=== PATIENT | male | born 1985 | race Caucasian/White ===

== ENCOUNTER 2016-09-30 10:01 | Emergency (ER) | payer BC ==
[2016-09-30 10:25] VITALS: BP 140/90; PULSE 112; RESP 18; TEMP 97.7; O2SAT 97
--- NOTE | 2016-09-30 11:08 | UCPHY ---
H & P Time Seen by Provider: 09/30/16 11:03 Patient Type: Established HPI/ROS: This patient presents with an episode of hypoglycemia recorded at 38 this morning. At bedtime last night was 98 and after taking sugar it was 150. He has an insulin pump and is a juvenile diabetic and usually does not have wide variations in his glucose levels. Is review of systems is otherwise negative The patient has had cold symptoms for approximately 5 days consisting of nasal congestion, headache and some minimal cough but without any fever. His symptoms felt improved yesterday and he ate and exercised normally. Prior to this is appetite was diminished and he was less active. He has had no GI symptoms otherwise including nausea vomiting or diarrhea or abdominal pain. Smoking Status: Never smoked Physical Exam: GENERAL: Well-appearing, well-nourished and in no acute distress. HEAD: Atraumatic, normocephalic. EYES: sclera anicteric, conjunctiva are normal. ENT: , nares congested, oropharynx clear without exudates. Moist mucous membranes. NECK: Normal range of motion, supple without lymphadenopathy or JVD. LUNGS: Breath sounds clear to auscultation bilaterally and equal. No wheezes rales or rhonchi. HEART: Regular rate and rhythm ABDOMEN: Soft, nontender, normoactive bowel sounds. No guarding, no rebound. No masses appreciated. EXTREMITIES: Normal range of motion NEUROLOGICAL: Cranial nerves II through XII grossly intact. Normal speech, normal gait. PSYCH: Normal mood, normal affect. SKIN: Warm, dry, normal turgor, no visible rashes or lesions. Constitutional: Initial Vital Signs Temperature (C) 36.5 C 09/30/16 10:21 Heart Rate 112 H 09/30/16 10:21 Respiratory Rate 18 09/30/16 10:21 Blood Pressure 140/90 H 09/30/16 10:21 O2 Sat (%) 97 09/30/16 10:21 O2 Delivery Mode Room Air Allergies/Adverse Reactions: No Known Allergies Allergy (Verified 09/30/16 10:19) Home Medications: Medication Instructions Recorded novoLOG 11/10/13 Medical Decision Making Differential Diagnosis: The cause of this patient's episode of hypoglycemia is unknown to me at this time. There is no evidence of significant infectious disease, no increased exercise and no diminished oral intake. He was advised to make contact with his regular physician and ask his advice as to the next best thing to do. It is not clear to me whether he should alter his flow rate of his insulin pump or see if this reoccurs. Departure - Departure Disposition: Home, Routine, Self-Care Clinical Impression: Hypoglycemia Upper respiratory infection Qualifiers: URI type: unspecified URI Qualified Code(s): J06.9 - Acute upper respiratory infection, unspecified Condition: Good Instructions: Hypoglycemia in a Person with Diabetes (ED), Upper Respiratory Infection (ED) Additional Instructions: You should call your physician and informed him about this episode of hypoglycemia. At this time I am not sure what is the best course of action and I feel that you should talk with him about what to do next. Monitor your blood sugars closely. Referrals: Bobby Galdamez MD [Primary Care Provider] - As per Instructions - PQRS PQRS Measurement: Not applicable
== END 2016-09-30 11:30 | disposition home or self-care (01) ==
LOC: CED 10:01
DX: E16.2 Hypoglycemia, unspecified (principal); J06.9 Acute upper respiratory infection, unspecified; E10.9 Type 1 diabetes mellitus without complications
CPT/HCPCS: 99213-PO; G0463-PO

== ENCOUNTER 2018-07-03 06:43 | Emergency (ER) | payer BC ==
--- NOTE | 2018-07-03 07:05 | EDPHY ---
H & P Stated Complaint: CP x1 day Time Seen by Provider: 07/03/18 06:54 HPI/ROS: Chief Complaint: Chest tightness HPI: 32-year-old type 1 diabetic male's presenting with tightness in his upper chest which began yesterday evening while he was working at the computer. At worst is 1 or 2/10. Is described as a central tightness, a little bit worse when he lays down. Mildly worse when he takes a deep breath. No cough. No fevers or chills. No leg pain or swelling. No recent periods of immobility. No family history of coronary artery disease or blood clotting disorder. There are no other aggravating or alleviating factors. Patient is a well controlled type 1 diabetic on an insulin pump with a see GEN. Last hemoglobin A1c was 6.9. ROS: 10 systems were reviewed and were negative except those elements noted in the HPI. PMH: Type 1 diabetes Social History: No smoking, no alcohol, no recreational drug use Family History: non-contributory Physical Exam: Gen: Awake, Alert, No Distress HEENT: Nose: no rhinorrhea Eyes: PERRLA, EOMI Mouth: Moist mucosa Neck: Supple, no JVD Chest: nontender, lungs clear to auscultation Heart: S1, S2 normal, no murmur Abd: Soft, non-tender, no guarding Back: no CVA tenderness, no midline tenderness Ext: no edema, non-tender Skin: no rash Neuro: CN II-XII intact, Sensation grossly intact, Strength 5/5 in bilateral upper and lower extremities - Personal History Current Tetanus/Diphtheria Vaccine: No Current Tetanus Diphtheria and Acellular Pertussis (TDAP): No - Medical/Surgical History Hx Asthma: No Hx Chronic Respiratory Disease: No Hx Diabetes: Yes Hx Cardiac Disease: No Hx Renal Disease: No Hx Cirrhosis: No Hx Alcoholism: No Hx HIV/AIDS: No Hx Splenectomy or Spleen Trauma: No Other PMH: TYPE I DIABETES, - Social History Smoking Status: Never smoked Constitutional: Initial Vital Signs Temperature (C) 36.6 C 07/03/18 06:52 Heart Rate 102 H 07/03/18 06:52 Respiratory Rate 18 07/03/18 06:52 Blood Pressure 133/90 H 07/03/18 06:52 O2 Sat (%) 98 07/03/18 06:52 O2 Delivery Mode Room Air Allergies/Adverse Reactions: No Known Allergies Allergy (Verified 09/30/16 10:19) Home Medications: Medication Instructions Recorded novoLOG 11/10/13 Albuterol [Proventil Inhaler HFA 1 - 2 puffs IH Q4H PRN #1 mdi 07/03/18 (*)] Medical Decision Making - Diagnostics EKG Interpretation: ECG time 6:54 a.m., sinus rhythm with a rate of 97, normal axis, normal intervals, no acute ST or T-wave changes. Impression: Normal ECG. ED Course/Re-evaluation: At the time of my evaluation conversation with the patient his heart rate was 89. He therefore has a PERC score of 0. There is no indication for D-dimer testing at this time. Given his history of diabetes and discomfort will obtain an ECG, troponin and chest x-ray to rule out any evidence of cardiac ischemia or infiltrate. Troponin is negative. Chest x-ray is consistent with a mild bronchitis. There are no focal infiltrates. Patient's vital signs are normal. He does have a mild cough. Will send him home with an albuterol MDI with spacer, over-the- counter supportive medications. No indication for antibiotics at this time. Will follow up with primary care physician for any concerns. - Data Points Laboratory Results: 07/03/18 07:13 POC Troponin I 0.00 ng/mL ng/mL (0.00-0.08) Point of Care Test Results: Chemistry 07/03/18 07:13 POC Troponin I 0.00 ng/mL ng/mL (0.00-0.08) Departure - Departure Disposition: Home, Routine, Self-Care Clinical Impression: Bronchitis Condition: Good Instructions: Acute Bronchitis (ED), Albuterol (By breathing) Additional Instructions: You may use the albuterol inhaler with a spacer, 1-2 puffs every 4 hr as needed for cough or wheezing. You may use [id number] cough and cold medicines for your symptoms. I recommend avoiding cough suppressant medications. Alternate acetaminophen (1000 mg) with ibuprofen (400 mg) every 4 hours as needed for fevers, chills, aches or pain. Follow up with primary care physician in 3-4 days if symptoms are not improving. Referrals: Bobby Galdamez MD [Medical Doctor] - As per Instructions Prescriptions: Albuterol [Proventil Inhaler HFA (*)] 1 - 2 puffs IH Q4H PRN #1 mdi PRN Reason: wheeze
[2018-07-03 07:23] VITALS: BP 114/80
--- NOTE | 2018-07-03 07:57 | CPEKG ---
Test Reason : OPEN Blood Pressure : / mmHG Vent. Rate : 097 BPM Atrial Rate : 099 BPM P-R Int : 134 ms QRS Dur : 093 ms QT Int : 337 ms P-R-T Axes : 045 056 031 degrees QTc Int : 428 ms Sinus rhythm Confirmed by Олег David ([id number]) on 07/03/2018 7:56:24 AM Referred By: Confirmed By:Олег David
== END 2018-07-03 07:50 | disposition home or self-care (01) ==
LOC: CED 06:43
DX: J40 Bronchitis, not specified as acute or chronic (principal); E11.9 Type 2 diabetes mellitus without complications
CPT/HCPCS: 71046-PO; 84484-ER